=== PATIENT | female | born 1965 | race Caucasian/White ===

== ENCOUNTER 2017-10-08 14:02 | Emergency (ER) | payer OTHER ==
[2017-10-08] MEDS ORDERED: Silver Sulfadiazine 1% Cream 50 GM JAR ONE (14:20)
== END 2017-10-08 14:46 | disposition home or self-care (01) ==
LOC: SCSER 14:02
DX: T21.34XA Burn of third degree of lower back, initial encounter (principal); J44.9 Chronic obstructive pulmonary disease, unspecified; F41.9 Anxiety disorder, unspecified; F31.9 Bipolar disorder, unspecified; F17.210 Nicotine dependence, cigarettes, uncomplicated; Z79.899 Other long term (current) drug therapy; X19.XXXA Contact with other heat and hot substances, initial encounter
CPT/HCPCS: 16020

== ENCOUNTER 2017-11-09 23:39 | Emergency (ER) | payer OTHER ==
[2017-11-10 00:14] LABS: #Basophils 0.1 thou/uL (0.0-0.2); #Eosinphils 0.1 thou/uL (0.0-0.7); #Lymphocytes 4.2 thou/uL (1.20-3.40); #Monocytes 0.8 thou/uL (0.11-0.59); #Neutrophils 14.6 thou/uL (1.40-6.50); %Basophils 0.4 % (0.0-1.0); %Eosinophils 0.3 % (0.0-10.0); %Lymphocytes 21.2 % (21.0-51.0); %Monocytes 4.1 % (0.0-10.0); Hemoglobin 13.8 g/dL (12.0-16.0); Mean Corpuscular HGB CONC 33.5 g/dL (32.0-36.0); Mean Corpuscular Hemoglobin 29.6 pg (27.0-31.0); Mean Corpuscular Volume 88.4 fl (81.0-99.0); Mean Platelet Volume 8.8 fL (7.4-10.4); Platelet Count 262 thou/uL (130-400); RBC Distribution Width 14.4 % (11.5-14.5); Red Blood Cell (RBC) Count 4.66 mill/uL (4.20-5.40); White Blood Cell (WBC) Count 19.8 thou/uL (4.8-10.8)
[2017-11-10 00:56] LABS: ALT (SGPT) 48 U/L (8-55); AST (SGOT) 38 U/L (5-34); Albumin 3.5 g/dL (3.5-5.0); Alkaline Phosphatase 109 U/L (40-150); Anion Gap 14 mmol/L (10-20); BUN (Urea Nitrogen) 11 mg/dL (9.8-20.1); Bilirubin, Total 0.3 mg/dL (0.2-1.2); Calc. Creatinine Clearance 0 mL/min (70-130); Calcium 8.5 mg/dL (7.8-10.44); Carbon Dioxide 25 mmol/L (22-29); Chloride 100 mmol/L (98-107); Estimated GFR-MDRD 85; Globulin 2.7 g/dL (2.4-3.5); Glucose 138 mg/dL (70-105); Potassium 3.9 mmol/L (3.5-5.1); Protein, Total 6.2 g/dL (6.0-8.3); Sodium 135 mmol/L (136-145)
[2017-11-10 02:25] LABS: Bilirubin Negative (Negative); Blood, Urine Negative (Negative); Clarity CLEAR (Clear); Glucose, Urine (Dipstick) Negative (Negative); Leukocyte Small (Negative); Nitrite Negative (Negative); Protein, Urine (Dipstick) Negative (Neg-Trace); Specific Gravity, Urine 1.005 (1.002-1.036); Urobilinogen 0.2 mg/dL (0.2-1.0)
[2017-11-10 02:26] LABS: Bacteria/HPF None Seen HPF (None Seen); Hyaline Casts/LPF 0-3 HYALINE CAST LPF (0-3 Hyaline); RBC/HPF 0-3 HPF (0-3); Squamous Epithelial 0-3 HPF (0-3); WBC/HPF 0-3 HPF (0-3)
--- NOTE | 2017-11-10 07:54 | RAD ---
AP VIEW CHEST: Date: 11/10/17 HISTORY: FINDINGS: Comparison made to previous exam from 06/02/15. AP view of chest demonstrates the lungs to be well aerated. No evidence of active intrathoracic disea se seen. No evidence of effusions, pneumonia, or pneumothorax seen. IMPRESSION: Unremarkable AP view chest. POS: [facility]
--- NOTE | 2017-11-10 08:34 | ULT ---
PRELIMINARY REPORT/[facility]/EMERGENTY AFTER-HOURS PROCEDURE US Abdomen Complete CLINICAL HISTORY: 52 years old, female; Pain; Abdominal pain; Localized; Right upper quadrant (ruq); Patient HX: Ruq ab d pain; Additional info: Recent dx: Pneumonia, HX: Hep c TECHNIQUE: Real-time ultrasound of the abdomen (complete) with image documentation. COMPARISON: No relevant prior studies available. FINDINGS: Limited due to overlying bowel gas Liver: Unremarkable. No mass. No intrahepatic bile duct dilation. Gallbladder: Unremarkable. No gallstones. Common bile duct: 6 mm. No definite stones Pancreas: Unremarkable as visualized. Kidneys: Unremarkable. No stones. No solid mass. No hydronephrosis. Spleen: Unremarkable. No splenomegaly. Aorta: Unremarkable. No aneurysm. Inferior vena cava: Unremarkable. IMPRESSION: Borderline common bile duct. No definite choledocholithiasis No sonographic evidence for gallstones Thank you for allowing us to participate in the care of your patient. Dictated and Authenticated by: Jim Davies MD 11/10/2017 4:37 AM Central Time ([place] & [place]) FINAL REPORT SONOGRAM ABDOMEN COMPLETE PERFORMED ON EMERGENCY BASIS: Date: 11/10/17 Time: 0245 hours HISTORY: Upper abdomen pain. FINDINGS/IMPRESSION: Findings agree with the preliminary report by [facility]. Common duct upper limits of normal in caliber. No biliary stones are directly visualized. No free fluid. POS: [facility]
== END 2017-11-10 03:28 | disposition left against medical advice (07) ==
LOC: ERS 23:39
DX: R10.9 Unspecified abdominal pain (principal); F31.9 Bipolar disorder, unspecified; F41.9 Anxiety disorder, unspecified; F17.210 Nicotine dependence, cigarettes, uncomplicated; J44.9 Chronic obstructive pulmonary disease, unspecified; G43.909 Migraine, unspecified, not intractable, without status migrainosus; Z79.899 Other long term (current) drug therapy; Z85.41 Personal history of malignant neoplasm of cervix uteri; Z85.841 Personal history of malignant neoplasm of brain; Z85.118 Personal history of other malignant neoplasm of bronchus and lung
CPT/HCPCS: 36415; 71045; 76700; 80053; 81001; 83605; 85025; 86850; 86900; 86901; 93005; 99406

== ENCOUNTER 2017-11-17 21:58 | Emergency (ER) | payer OTHER ==
[2017-11-17 22:50] LABS: #Basophils 0.1 thou/uL (0.0-0.2); #Eosinphils 0.1 thou/uL (0.0-0.7); #Lymphocytes 2.3 thou/uL (1.20-3.40); #Monocytes 0.5 thou/uL (0.11-0.59); #Neutrophils 8.1 thou/uL (1.40-6.50); %Basophils 0.5 % (0.0-1.0); %Eosinophils 0.5 % (0.0-10.0); %Lymphocytes 20.8 % (21.0-51.0); %Monocytes 4.5 % (0.0-10.0); %Neutrophils 73.8 % (42.0-75.0); Hemoglobin 13.3 g/dL (12.0-16.0); Mean Corpuscular HGB CONC 33.5 g/dL (32.0-36.0); Mean Corpuscular Volume 89.5 fl (81.0-99.0); Mean Platelet Volume 8.6 fL (7.4-10.4); Platelet Count 191 thou/uL (130-400); RBC Distribution Width 14.5 % (11.5-14.5); Red Blood Cell (RBC) Count 4.43 mill/uL (4.20-5.40)
[2017-11-17 23:13] LABS: ALT (SGPT) 71 U/L (8-55); AST (SGOT) 45 U/L (5-34); Albumin 3.5 g/dL (3.5-5.0); Alkaline Phosphatase 127 U/L (40-150); Anion Gap 9 mmol/L (10-20); BUN (Urea Nitrogen) 11 mg/dL (9.8-20.1); Bilirubin, Total 0.4 mg/dL (0.2-1.2); Calc. Creatinine Clearance 0 mL/min (70-130); Calcium 8.4 mg/dL (7.8-10.44); Carbon Dioxide 29 mmol/L (22-29); Chloride 96 mmol/L (98-107); Estimated GFR-MDRD 88; Globulin 2.6 g/dL (2.4-3.5); Glucose 263 mg/dL (70-105); Lipase 68 U/L (8-78); Potassium 4.2 mmol/L (3.5-5.1); Protein, Total 6.1 g/dL (6.0-8.3); Sodium 130 mmol/L (136-145)
[2017-11-17 23:42] LABS: INR-International Normal Ratio 0.9; PTT 26.1 SEC (22.9-36.1); Prothrombin Time 12.6 SEC (12.0-14.7)
[2017-11-18] MEDS ORDERED: Morphine 4 MG/ML VIAL ONE (00:15)
--- NOTE | 2017-11-18 07:47 | CT ---
PRELIMINARY REPORT/[facility]/EMERGENTY AFTER-HOURS PROCEDURE CT Abdomen and Pelvis With Intravenous Contrast EXAM DATE/TIME: 11/18/2017 12:37 AM CLINICAL HISTORY: 52 years old, female; Pain; Abdominal pain; Generalized; Patient HX: 52f reports worsening liver pain . States she was recently released for pna, but is having worsening liver pain from her cirrhosis and blood in stools. She is also peeing a lot. Denies fevers. TECHNIQUE: Axial computed tomography images of the abdomen and pelvis with intravenous contrast. Coronal reforma tted images were created and reviewed. COMPARISON: US - Abdomen 2017-11-10 02:44 FINDINGS: Lung bases: Unremarkable. No mass. No consolidation. ABDOMEN: Liver: Suspected fatty infiltration of the liver. Gallbladder and bile ducts: Unremarkable. No calcified stones. No ductal dilation. Pancreas: Unremarkable. No mass. No ductal dilation. Spleen: Unremarkable. No splenomegaly. Adrenals: Unremarkable. No mass. Kidneys and ureters: Unremarkable. No solid mass. No hydronephrosis. Stomach and bowel: Moderate stool within the proximal nondilated colon. No mucosal thickening. PELVIS: Appendix: Visualized portions of appendix appear normal. Bladder: Unremarkable. No mass. Reproductive: Uterus appears within normal limits. Ovoid 3 cm hypodensity in left ovary. ABDOMEN and PELVIS: Intraperitoneal space: Unremarkable. No free air. No significant fluid collection. Bones/joints: Chronic degenerative changes of the lumbar spine. No acute fracture. No dislocation. Soft tissues: Unremarkable. Vasculature: Chronic atherosclerotic calcification of the vasculature. No abdominal aortic aneurysm. Lymph nodes: Unremarkable. No enlarged lymph nodes. IMPRESSION: 1. Moderate stool within the proximal nondilated colon. Findings suggest some degree of constipation. 2. Ovoid 3 cm left ovarian cyst. 3. Suspected fatty infiltration of the liver. Thank you for allowing us to participate in the care of your patient. Dictated and Authenticated by: Andrea Pan MD 11/18/2017 1:31 AM Central Time ([place] & [place]) FINAL REPORT CT ABDOMEN AND PELVIS WITH IV CONTRAST: DATE: 11/18/17. TIME: Performed on an emergency basis at 0039 hours. HISTORY: Abdominal pain. Hematochezia. FINDINGS: Findings agree with the preliminary report by Dr. Pan from [facility]. A large amount of s tool suggests constipation. Left ovarian cyst is confirmed. No evidence of bowel obstruction. POS: [facility]
== END 2017-11-18 02:04 | disposition home or self-care (01) ==
LOC: ERS 21:58
DX: K74.60 Unspecified cirrhosis of liver (principal); J44.9 Chronic obstructive pulmonary disease, unspecified; G43.909 Migraine, unspecified, not intractable, without status migrainosus; J45.909 Unspecified asthma, uncomplicated; F41.9 Anxiety disorder, unspecified; F31.9 Bipolar disorder, unspecified; Z87.891 Personal history of nicotine dependence
CPT/HCPCS: 36415; 74177; 80053; 82140; 82274; 83605; 83690; 83880; 85025; 85610; 85730; 86850; 86900; 86901; 94760; 96374; J2270

== ENCOUNTER 2020-09-29 13:53 | Emergency (ER) | payer MEDICAID, OTHER ==
[2020-09-29 14:24] LABS: #Basophils 0.1 thou/uL (0.0-0.2); #Eosinphils 0.3 thou/uL (0.0-0.7); #Monocytes 0.7 thou/uL (0.11-0.59); #Neutrophils 4.8 thou/uL (1.40-6.50); %Basophils 0.9 % (0.0-1.0); %Eosinophils 2.9 % (0.0-10.0); %Lymphocytes 33.9 % (21.0-51.0); %Monocytes 7.8 % (0.0-10.0); %Neutrophils 54.5 % (42.0-75.0); Hemoglobin 13.9 g/dL (12.0-16.0); Mean Corpuscular HGB CONC 32.9 g/dL (32.0-36.0); Mean Corpuscular Hemoglobin 31.3 pg (27.0-31.0); Mean Corpuscular Volume 95.2 fL (78.0-98.0); Mean Platelet Volume 9.6 fL (7.4-10.4); Platelet Count 164 thou/uL (130-400); RBC Distribution Width 14.4 % (11.5-14.5); Red Blood Cell (RBC) Count 4.43 mill/uL (4.20-5.40); White Blood Cell (WBC) Count 8.8 thou/uL (4.8-10.8)
[2020-09-29 14:48] LABS: ALT (SGPT) 108 U/L (8-55); AST (SGOT) 132 U/L (5-34); Albumin 3.4 g/dL (3.5-5.0); Alkaline Phosphatase 168 U/L (40-110); Anion Gap 10 mmol/L (10-20); BUN (Urea Nitrogen) 8 mg/dL (9.8-20.1); Bilirubin, Total 0.8 mg/dL (0.2-1.2); Calc. Creatinine Clearance 0 mL/min (70-130); Carbon Dioxide 28 mmol/L (22-29); Chloride 104 mmol/L (98-107); Globulin 3.6 g/dL (2.4-3.5); Glucose 83 mg/dL (70-105); Potassium 3.6 mmol/L (3.5-5.1); Sodium 138 mmol/L (136-145)
[2020-09-29 15:07] LABS: PTT 29.3 sec (22.9-36.1); Prothrombin Time 13.8 sec (12.0-14.7)
[2020-09-29] MEDS ORDERED: Ketorolac Tromethamine 30 MG/ML VIAL ONE (15:20)
[2020-09-29 15:28] LABS: CK (CPK) 414 U/L (29-168); Lipase 74 U/L (8-78)
[2020-09-29] MEDS ORDERED: Morphine 4 MG/ML VIAL ONE (16:09)
== END 2020-09-29 16:41 | disposition home or self-care (01) ==
LOC: ERS 13:53
DX: R53.1 Weakness (principal); J44.9 Chronic obstructive pulmonary disease, unspecified; F17.210 Nicotine dependence, cigarettes, uncomplicated
CPT/HCPCS: 71045; 76705; 80053; 82140; 82550; 83690; 83880; 84484; 85025; 85610; 85730; 93005; 96374; J1885; J2270